=== PATIENT | female | born 1980 ===

== ENCOUNTER 2020-09-08 02:35 | Day surgery (SDC) | payer SELFPAY ==
[~2020-09-08] VITALS: Ht 165.1 cm; Wt 81.1 kg
[2020-09-08] VITALS (9 sets, daily range): BP systolic 109–136; BP diastolic 71–80
--- NOTE | 2020-09-08 02:54 | ED Abdominal Pain ---
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) Exam Limitations: Language Barrier History of Present Illness Date Seen by Provider: Sep 08, 2020 Time Seen by Provider: 02:44 Initial Comments PT ARRIVES VIA POV C/O UPPER ABDOMINAL PAIN SINCE 1700 TONIGHT PAIN IS CONSTANT AND SEVERE NO VOMITING OR DIARRHEA NO FEVER NO URINARY SYMPTOMS TOOK UNKNOWN MEDICATION FOR "COLON" AND HAD BM X 3, NO IMPROVEMENT IN PAIN HAD SIMILAR 2 YEARS AGO IN [facility], NO TESTS DONE STATES SHE MOVED HERE 2 MONTHS AGO FROM [facility] LMP 1 MONTH AGO, HAS HAD STERILIZATION PROCEDURE PCP: RAHEEM Allergies and Home Medications Allergies Coded Allergies: No Known Drug Allergies (Unverified , 09/08/20) Patient Home Medication List Home Medication List Reviewed: Yes Review of Systems Review of Systems Constitutional: No chills, No diaphoresis, No dizziness, No fever; malaise Gastrointestinal: See HPI, Abdominal Pain; Denies Diarrhea, Denies Vomiting Genitourinary: No Symptoms Reported Musculoskeletal: no symptoms reported Past Fxgckvp-Meucxu-Qvdqcw Hx Past Med/Social Hx: Reviewed and Corrections made Patient Social History Alcohol Use: Denies Use Drug of Choice: DENIES Smoking Status: Never a Smoker Past Medical History Surgeries: Yes ( X 2) Section, Tubal Ligation Respiratory: No Cardiac: No Neurological: No : No Reproductive Disorders: No CLIENT ADVOCATE History: Tubal Ligation Genitourinary: No Gastrointestinal: No Musculoskeletal: No Endocrine: No HEENT: No Cancer: No Psychosocial: No Integumentary: No Blood Disorders: No Physical Exam Vital Signs Vital Signs - First Documented 09/08/20 02:44 Temp 35.9 Pulse 70 Resp 16 B/P (MAP) 129/72 (91) Pulse Ox 100 O2 Delivery Room Air Capillary Refill : Height/Weight/BMI Height: '" Weight: lbs. oz. kg; BMI Method: General Appearance: WD/WN, no apparent distress, obese, other (WALKS UPRIGHT BUT HOLDING UPPER ABDOMEN) Respiratory: normal breath sounds Cardiovascular: regular rate, rhythm, no murmur Gastrointestinal: normal bowel sounds, soft; No distended; guarding; No rebound; tenderness (MODERATE EPIGASTRIC); No hernia, No mass Rectal: normal exam, heme negative stool Extremities: normal inspection Back: no CVA tenderness Neurologic/Psychiatric: no motor/sensory deficits, alert, oriented x 3 Skin: normal color (PT IS ), warm/dry; No rash Progress/Results/Core Measures Results/Orders Lab Results Laboratory Tests Test 09/08/20 02:45 09/08/20 02:50 Range/Units Urine Color YELLOW Urine Clarity CLEAR Urine pH 6.5 5-9 Urine Specific [place] 1.020 1.016-1.022 Urine Protein NEGATIVE NEGATIVE Urine Glucose (UA) NEGATIVE NEGATIVE Urine Ketones NEGATIVE NEGATIVE Urine Nitrite NEGATIVE NEGATIVE Urine Bilirubin NEGATIVE NEGATIVE Urine Urobilinogen 2.0 < = 1.0 MG/DL Urine Leukocyte Esterase NEGATIVE NEGATIVE Urine RBC (Auto) NEGATIVE NEGATIVE Urine RBC NONE /HPF Urine WBC NONE /HPF Urine Squamous Epithelial Cells 5-10 /HPF Urine Crystals NONE /LPF Urine Bacteria FEW H /HPF Urine Casts NONE /LPF Urine Mucus NEGATIVE /LPF Urine Culture Indicated NO Urine Opiates Screen NEGATIVE NEGATIVE Urine Oxycodone Screen NEGATIVE NEGATIVE Urine Methadone Screen NEGATIVE NEGATIVE Urine Propoxyphene Screen NEGATIVE NEGATIVE Urine Barbiturates Screen NEGATIVE NEGATIVE Ur Tricyclic Antidepressants Screen NEGATIVE NEGATIVE Urine Phencyclidine Screen NEGATIVE NEGATIVE Urine Amphetamines Screen NEGATIVE NEGATIVE Urine Methamphetamines Screen NEGATIVE NEGATIVE Urine Benzodiazepines Screen NEGATIVE NEGATIVE Urine Cocaine Screen NEGATIVE NEGATIVE Urine Cannabinoids Screen NEGATIVE NEGATIVE White Blood Count 4.5 4.3-11.0 10^3/uL Red Blood Count 4.33 3.80-5.11 10^6/uL Hemoglobin 7.5 L 11.5-16.0 g/dL Hematocrit 28 L 35-52 % Mean Corpuscular Volume 65 L 80-99 fL Mean Corpuscular Hemoglobin 17 L 25-34 pg Mean Corpuscular Hemoglobin Concent 27 L 32-36 g/dL Red Cell Distribution Width 18.8 H 10.0-14.5 % Platelet Count 181 130-400 10^3/uL Mean Platelet Volume 9.0-12.2 fL Immature Granulocyte % (Auto) 0 % Neutrophils (%) (Auto) 49 42-75 % Lymphocytes (%) (Auto) 37 12-44 % Monocytes (%) (Auto) 12 0-12 % Eosinophils (%) (Auto) 1 0-10 % Basophils (%) (Auto) 1 0-10 % Neutrophils # (Auto) 2.2 1.8-7.8 10^3/uL Lymphocytes # (Auto) 1.7 1.0-4.0 10^3/uL Monocytes # (Auto) 0.6 0.0-1.0 10^3/uL Eosinophils # (Auto) 0.1 0.0-0.3 10^3/uL Basophils # (Auto) 0.0 0.0-0.1 10^3/uL Immature Granulocyte # (Auto) 0.0 0.0-0.1 10^3/uL Sodium Level 140 135-145 MMOL/L Potassium Level 3.9 3.6-5.0 MMOL/L Chloride Level 106 98-107 MMOL/L Carbon Dioxide Level 23 21-32 MMOL/L Anion Gap 11 5-14 MMOL/L Blood Urea Nitrogen 8 7-18 MG/DL Creatinine 0.68 0.60-1.30 MG/DL Estimat Glomerular Filtration Rate > 60 BUN/Creatinine Ratio 12 Glucose Level 91 70-105 MG/DL Calcium Level 9.0 8.5-10.1 MG/DL Corrected Calcium 8.7 8.5-10.1 MG/DL Total Bilirubin 0.8 0.1-1.0 MG/DL Aspartate Amino Transf (AST/SGOT) 30 5-34 U/L Alanine Aminotransferase (ALT/SGPT) 25 0-55 U/L Alkaline Phosphatase 76 40-136 U/L Total Protein 8.0 6.4-8.2 GM/DL Albumin 4.4 3.2-4.5 GM/DL Amylase Level 66 25-125 U/L Lipase 27 8-78 U/L My Orders Orders - AMOS EATON DO Ed Iv/Invasive Line Start (09/08/20 02:44) Urine Bedside (09/08/20 02:44) Amylase (09/08/20 02:44) Cbc With Automated Diff (09/08/20 02:44) Comprehensive Metabolic Panel (09/08/20 02:44) Drug Screen Stat (Urine) (09/08/20 02:44) Lipase (09/08/20 02:44) Ua Culture If Indicated (09/08/20 02:44) Ondansetron Injection (Zofran Injectio (09/08/20 03:15) Hyoscyamine Sl Tablet (Levsin Sl Tablet) (09/08/20 03:15) Pantoprazole Injection (Protonix Injecti (09/08/20 03:15) Ct Abdomen/Pelvis W (09/08/20 03:03) Red Cells Leukocytes Reduced (09/08/20 03:04) Ed Iv/Invasive Line Start (09/08/20 03:04) Ns Iv 1000 Ml (Sodium Chloride 0.9%) (09/08/20 03:15) Type And Screen (09/08/20 03:04) Iohexol Injection (Omnipaque 350 Mg/Ml 1 (09/08/20 04:00) Received Contrast (Hold Metformin- Contr (09/08/20 04:00) Sodium Chloride Flush (Catheter Flush Sy (09/08/20 04:00) Ns (Ivpb) (Sodium Chloride 0.9% Ivpb Bag (09/08/20 04:00) Ns Iv 500 Ml (Sodium Chloride 0.9%) (09/08/20 04:02) Medications Given in ED Current Medications Medications Dose Ordered Sig/Josh Route Start Time Stop Time Status Last Admin Dose Admin Hyoscyamine Sulfate 0.25 mg ONCE ONCE PO 09/08/20 03:15 09/08/20 03:17 DC 09/08/20 03:09 0.25 MG Iohexol 100 ml ONCE ONCE IV 09/08/20 04:00 09/08/20 04:01 DC 09/08/20 04:08 100 ML Ondansetron HCl 4 mg ONCE ONCE IVP 09/08/20 03:15 09/08/20 03:17 DC 09/08/20 03:11 4 MG Pantoprazole 40 mg ONCE ONCE IV 09/08/20 03:15 09/08/20 03:17 DC 09/08/20 03:16 40 MG Sodium Chloride 10 ml NEEDED PRN IV 09/08/20 04:00 09/08/20 04:08 10 ML Sodium Chloride 100 ml ONCE ONCE IV 09/08/20 04:00 09/08/20 04:01 DC 09/08/20 04:08 80 ML Sodium Chloride 500 ml @ STK-MED ONCE .ROUTE 09/08/20 04:02 09/08/20 04:13 DC 09/08/20 04:29 500 MLS/HR Vital Signs/I&O 09/08/20 02:44 Temp 35.9 Pulse 70 Resp 16 B/P (MAP) 129/72 (91) Pulse Ox 100 O2 Delivery Room Air Progress Progress Note : Progress Note GIVEN IV FLUIDS, ZOFRAN, PROTONIX, LEVSIN WITH IMPROVEMENT IN SYMPTOMS PT LATER STATES THAT SHE HAS BEEN ANEMIC IN THE PAST, WITH HER LAST 15 YEARS AGO NO KNOWN PROBLEMS WITH ANEMIA WHEN SHE IS NOT PT HAS NEVER HAD A BLOOD TRANSFUSION PT STATES NOW THAT SHE HAS BEEN TIRED RECENTLY, AND WENT TO [facility] RECENTLY BUT NO TESTS WERE DONE. NO DETERIORATION IN PT'S CONDITION DURING ER STAY Diagnostic Imaging Comments CT ABDOMEN/PELVIS--NO ACUTE PROCESS, PER [facility] VIA FAX AT 0210 Reviewed: Reviewed by Me Departure Communication (Admissions) 043--SPOKE WITH DR. LEVY, HOSPITALIST FOR [facility], ACCEPTS PT FOR ADMIT. WOULD LIKE SURGERY CONSULTED 0434--SPOKE WITH DR. PEDRAZA, SURGEON SILK SCREEN PROCESSOR. INFORMED HIM OF CONSULT. HE ADVISES THAT PT MAY BE ON CLEAR LIQUID DIET. Impression Primary Impression: Anemia Additional Impression: Epigastric abdominal pain Disposition: ADMITTED INPATIENT Condition: Stable Admissions Decision to Admit Reason: Admit from ER (General) Decision to Admit/Date: Sep 08, 2020 Time/Decision to Admit Time: 04:30 Departure-Patient Inst. Referrals: NO,LOCAL PHYSICIAN (PCP) Primary Care Physician AMOS EATON DO Sep 08, 2020 02:54
[2020-09-08 02:59] LABS: BASOPHILS % (AUTO) 1 % (0-10); EOSINOPHILS # (AUTO) 0.1 10^3/uL (0.0-0.3); EOSINOPHILS % (AUTO) 1 % (0-10); HEMATOCRIT 28 % (35-52); HEMOGLOBIN 7.5 g/dL (11.5-16.0); LYMPHOCYTES # (AUTO) 1.7 10^3/uL (1.0-4.0); LYMPHOCYTES % (AUTO) 37 % (12-44); MEAN CORPUSCULAR HEMOGLOBIN 17 pg (25-34); MEAN CORPUSCULAR HGB CONC 27 g/dL (32-36); MEAN CORPUSCULAR VOLUME 65 fL (80-99); MONOCYTES # (AUTO) 0.6 10^3/uL (0.0-1.0); MONOCYTES % (AUTO) 12 % (0-12); NEUTROPHILS # (AUTO) 2.2 10^3/uL (1.8-7.8); NEUTROPHILS % (AUTO) 49 % (42-75); PLATELET COUNT 181 10^3/uL (130-400); WHITE BLOOD COUNT 4.5 10^3/uL (4.3-11.0)
[2020-09-08 03:13] LABS: BILIRUBIN,URINE NEGATIVE (NEGATIVE); CLARITY,URINE CLEAR; COLOR,URINE YELLOW; GLUCOSE, URINE (UA) NEGATIVE (NEGATIVE); KETONES,URINE NEGATIVE (NEGATIVE); LEUKOCYTE ESTERASE ,URINE NEGATIVE (NEGATIVE); NITRITE,URINE NEGATIVE (NEGATIVE); PH,URINE 6.5 (5-9); PROTEIN,URINE NEGATIVE (NEGATIVE)
[2020-09-08] MEDS ORDERED: PANTOPRAZOLE 40 MG (PROTONIX) VIAL IV ONE (03:15)
[2020-09-08] MEDS ORDERED: NS IV 1000 ML 1,000 ML IV SCH (03:15)
[2020-09-08] MEDS ORDERED: HYOSCYAMINE 0.125 MG (LEVSIN) TAB PO ONE (03:15)
[2020-09-08] MEDS ORDERED: ONDANSETRON 4 MG/2 ML (SDV) Z0FRAN IVP ONE (03:15)
[2020-09-08 03:16] LABS: ALBUMIN 4.4 GM/DL (3.2-4.5); CHLORIDE 106 MMOL/L (98-107); POTASSIUM 3.9 MMOL/L (3.6-5.0); SODIUM 140 MMOL/L (135-145)
[2020-09-08 03:17] LABS: AMYLASE 66 U/L (25-125)
[2020-09-08 03:19] LABS: GLUCOSE 91 MG/DL (70-105)
[2020-09-08 03:20] LABS: BACTERIA,URINE FEW /HPF
[2020-09-08 03:20] LABS: BILIRUBIN,TOTAL 0.8 MG/DL (0.1-1.0); CARBON DIOXIDE 23 MMOL/L (21-32)
[2020-09-08 03:22] LABS: ALKALINE PHOSPHATASE 76 U/L (40-136); CREATININE SERUM 0.68 MG/DL (0.60-1.30); GFR ESTIMATED > 60
[2020-09-08 03:24] LABS: BUN/CREATININE RATIO 12
[2020-09-08 03:25] LABS: ALANINE AMINOTRANSFERASE 25 U/L (0-55)
[2020-09-08 03:26] LABS: LIPASE 27 U/L (8-78)
[2020-09-08 03:28] LABS: AMPHETAMINE SCREEN, URINE NEGATIVE (NEGATIVE); BARBITURATE SCREEN URINE NEGATIVE (NEGATIVE); BENZODIAZEPINES SCREEN URINE NEGATIVE (NEGATIVE); CANNABINOID SCREEN, URINE NEGATIVE (NEGATIVE); COCAINE SCREEN URINE NEGATIVE (NEGATIVE); METHADONE STAT NEGATIVE (NEGATIVE); METHAMPHETAMINE SCREEN URINE S NEGATIVE (NEGATIVE); OPIATE SCREEN URINE NEGATIVE (NEGATIVE); OXYCODONE STAT NEGATIVE (NEGATIVE); PROPOXYPHENE STAT NEGATIVE (NEGATIVE); TRICYCLIC ANTIDEPRESSANTS SCRE NEGATIVE (NEGATIVE)
[2020-09-08] MEDS ORDERED: IOHEXOL 350 MG/ML 100 ML (OMNIPAQUE 350) VIAL IV ONE (04:00)
[2020-09-08] MEDS ORDERED: HOLD METFORMIN - RECEIVED CONTRAST 20 ML VIAL IV SCH (04:00)
[2020-09-08] MEDS ORDERED: NS 100 ML (IVPB) BAG IV ONE (04:00)
[2020-09-08] MEDS ORDERED: CATHETER FLUSH 10 ML SYR IV PRN (04:00)
[2020-09-08] MEDS ORDERED: NS IV 500 ML 500 ML ONE (04:02)
[2020-09-08] MEDS ORDERED: fentaNYL INJ 100 MCG/2 ML AMP IVP PRN (05:30)
[2020-09-08] MEDS ORDERED: ONDANSETRON 4 MG/2 ML (SDV) Z0FRAN IVP PRN (05:30)
[2020-09-08] MEDS ORDERED: HYOSCYAMINE 0.125 MG (LEVSIN) TAB PO PRN (05:30)
--- NOTE | 2020-09-08 07:25 | Diagnostic Imaging Report ---
PROCEDURE: CT abdomen and pelvis with contrast. TECHNIQUE: Multiple contiguous axial images were obtained through the abdomen and pelvis after administration of intravenous contrast. Auto Exposure Controls were utilized during the CT exam to meet ALARA standards for radiation dose reduction. All CT scans use one or more of the following dose optimizing techniques: automated exposure control, MA and/or KvP adjustment based on patient size and exam type or iterative reconstruction. INDICATION: Epigastric pain, onset last evening. COMPARISON STUDIES: None FINDINGS: The lung bases are clear. Liver and gallbladder appear normal. Spleen is upper normal in size. Adrenal glands and kidneys appear normal. No renal calculi or hydronephrosis is present. The appendix is never visualized. Urinary bladder appears unremarkable. There is probably a fibroid in the left side of the uterus. Adnexal structures appear normal. No ascites is present. Bowel loops demonstrate no inflammatory or obstructive changes. IMPRESSION: 1. The appendix is never definitely identified. What appears to be the appendix on the coronal view appears normal. 2. Probable small uterine fibroid. Findings agree with [facility] report. Dictated by: Dictated on workstation # [id number]
[2020-09-08] MEDS: PANTOPRAZOLE 40 MG (PROTONIX) VIAL IV SCH (09:16)
[2020-09-08] MEDS: NS IV 1000 ML 1,000 ML IV SCH ×3 (09:16→22:14)
[2020-09-08 11:02] LABS: HEMOGLOBIN 8.7 g/dL (11.5-16.0)
--- NOTE | 2020-09-08 15:04 | History & Physical ---
HPI History of Present Illness: 40 yo F that presented with worsening abdominal pain the last 3 days. States that the pain has become more sharp and she feels more bloated the last 2 days. States that she has had some burning pain in her upper abdomen. Denies any N/V. No diarrhea or constipation. States that she has had a similar episode 5 years ago when she was in [place] and she says she got fluids and never was told what was going on. Denies any previous surgeries other then 2 c sections. States that she still has her gallbladder and appendix. Otherwise no other medical problems and does not take any medications. Source: patient, edge baster (Language line on the phone) Exam Limitations: no limitations Date seen by provider: Sep 08, 2020 Time Seen by Provider: 10:25 Attending Physician Alexus Rodriguez DO [facility] [place] Consult Date of Admission Sep 08, 2020 at 04:30 Home Medications Home Medications Reviewed patient Home Medication Reconciliation performed by pharmacy medication reconciliations fork lift technician and/or nursing. Patients Allergies have been reviewed. Allergies Coded Allergies: No Known Drug Allergies (Unverified , 09/08/20) DKS-Rwbsee-Dxbuvn Hx Patient Social History Drug of Choice: DENIES Smoking Status: Never a Smoker 2nd Hand Smoke Exposure: No Recent Hopitalizations: No Alcohol Use?: No Have you traveled recently?: No Past Medical History 2 previous C/sections Review of Systems ([facility]) Constitutional: chills, malaise EENTM: no symptoms reported Respiratory: no symptoms reported; No cough, No dyspnea on exertion, No short of breath Cardiovascular: no symptoms reported; No chest pain, No edema, No palpitations Gastrointestinal: abdominal pain, heartburn, nausea Genitourinary: no symptoms reported; No dysuria, No frequency, No hematuria : No Musculoskeletal: no symptoms reported; No back pain, No joint pain, No muscle pain Skin: no symptoms reported; No lesions, No rash Psychiatric/Neurological: No Symptoms Reported Reviewed Test Results Reviewed Test Results Lab Laboratory Tests Test 09/08/20 02:45 09/08/20 02:50 09/08/20 10:57 09/08/20 11:36 Range/Units Urine Color YELLOW Urine Clarity CLEAR Urine pH 6.5 5-9 Urine Specific [place] 1.020 1.016-1.022 Urine Protein NEGATIVE NEGATIVE Urine Glucose (UA) NEGATIVE NEGATIVE Urine Ketones NEGATIVE NEGATIVE Urine Nitrite NEGATIVE NEGATIVE Urine Bilirubin NEGATIVE NEGATIVE Urine Urobilinogen 2.0 < = 1.0 MG/DL Urine Leukocyte Esterase NEGATIVE NEGATIVE Urine RBC (Auto) NEGATIVE NEGATIVE Urine RBC NONE /HPF Urine WBC NONE /HPF Urine Squamous Epithelial Cells 5-10 /HPF Urine Crystals NONE /LPF Urine Bacteria FEW H /HPF Urine Casts NONE /LPF Urine Mucus NEGATIVE /LPF Urine Culture Indicated NO Urine Opiates Screen NEGATIVE NEGATIVE Urine Oxycodone Screen NEGATIVE NEGATIVE Urine Methadone Screen NEGATIVE NEGATIVE Urine Propoxyphene Screen NEGATIVE NEGATIVE Urine Barbiturates Screen NEGATIVE NEGATIVE Ur Tricyclic Antidepressants Screen NEGATIVE NEGATIVE Urine Phencyclidine Screen NEGATIVE NEGATIVE Urine Amphetamines Screen NEGATIVE NEGATIVE Urine Methamphetamines Screen NEGATIVE NEGATIVE Urine Benzodiazepines Screen NEGATIVE NEGATIVE Urine Cocaine Screen NEGATIVE NEGATIVE Urine Cannabinoids Screen NEGATIVE NEGATIVE White Blood Count 4.5 4.3-11.0 10^3/uL Red Blood Count 4.33 3.80-5.11 10^6/uL Hemoglobin 7.5 L 8.7 L 11.5-16.0 g/dL Hematocrit 28 L 31 L 35-52 % Mean Corpuscular Volume 65 L 80-99 fL Mean Corpuscular Hemoglobin 17 L 25-34 pg Mean Corpuscular Hemoglobin Concent 27 L 32-36 g/dL Red Cell Distribution Width 18.8 H 10.0-14.5 % Platelet Count 181 130-400 10^3/uL Mean Platelet Volume 9.0-12.2 fL Immature Granulocyte % (Auto) 0 % Neutrophils (%) (Auto) 49 42-75 % Lymphocytes (%) (Auto) 37 12-44 % Monocytes (%) (Auto) 12 0-12 % Eosinophils (%) (Auto) 1 0-10 % Basophils (%) (Auto) 1 0-10 % Neutrophils # (Auto) 2.2 1.8-7.8 10^3/uL Lymphocytes # (Auto) 1.7 1.0-4.0 10^3/uL Monocytes # (Auto) 0.6 0.0-1.0 10^3/uL Eosinophils # (Auto) 0.1 0.0-0.3 10^3/uL Basophils # (Auto) 0.0 0.0-0.1 10^3/uL Immature Granulocyte # (Auto) 0.0 0.0-0.1 10^3/uL Sodium Level 140 135-145 MMOL/L Potassium Level 3.9 3.6-5.0 MMOL/L Chloride Level 106 98-107 MMOL/L Carbon Dioxide Level 23 21-32 MMOL/L Anion Gap 11 5-14 MMOL/L Blood Urea Nitrogen 8 7-18 MG/DL Creatinine 0.68 0.60-1.30 MG/DL Estimat Glomerular Filtration Rate > 60 BUN/Creatinine Ratio 12 Glucose Level 91 70-105 MG/DL Calcium Level 9.0 8.5-10.1 MG/DL Corrected Calcium 8.7 8.5-10.1 MG/DL Total Bilirubin 0.8 0.1-1.0 MG/DL Aspartate Amino Transf (AST/SGOT) 30 5-34 U/L Alanine Aminotransferase (ALT/SGPT) 25 0-55 U/L Alkaline Phosphatase 76 40-136 U/L Total Protein 8.0 6.4-8.2 GM/DL Albumin 4.4 3.2-4.5 GM/DL Amylase Level 66 25-125 U/L Lipase 27 8-78 U/L Glucometer 107 70-110 MG/DL Test 09/08/20 13:50 Range/Units Lab Scanned Report Transfusion Reaction Form [id number] Physical Exam-([facility]) Physical Exam Vital Signs VS - Last 72 Hours, by Label 09/08/20 09/08/20 09/08/20 09/08/20 02:44 05:03 05:15 05:50 Temp 35.9 36.2 36.2 Pulse 70 60 59 53 Resp 16 19 18 18 B/P (MAP) 129/72 (91) 139/69 136/78 (97) 130/80 Pulse Ox 100 100 100 100 O2 Delivery Room Air Room Air Room Air Room Air 09/08/20 09/08/20 09/08/20 09/08/20 05:55 06:00 06:13 06:29 Temp 36.2 36.2 Pulse 60 53 55 Resp 18 16 B/P (MAP) 130/80 123/78 Pulse Ox 100 100 100 O2 Delivery Room Air Room Air Room Air 09/08/20 09/08/20 09/08/20 09/08/20 07:15 08:00 11:35 12:40 Temp 36.5 36.4 Pulse 58 57 47 Resp 18 18 B/P (MAP) 128/78 (95) 116/71 (86) Pulse Ox 99 99 99 O2 Delivery Room Air Room Air Room Air 09/08/20 14:38 Pulse Ox 99 O2 Delivery Room Air Capillary Refill : Less Than 3 Seconds General Appearance: WD/WN, no apparent distress Neck: non-tender, full range of motion, supple Respiratory: chest non-tender, lungs clear, normal breath sounds, no resp iratory distress, no accessory muscle use Cardiovascular: normal peripheral pulses, regular rate, rhythm, no edema, no murmur Gastrointestinal: normal bowel sounds, soft, distended, tenderness (epigastric ttp, no rebound or guarding); No mass Back: no CVA tenderness, no vertebral tenderness Extremities: normal range of motion, non-tender, normal inspection, no pedal edema, no calf tenderness, normal capillary refill Neurologic/Psychiatric: tavern operator II-XII nml as tested, no motor/sensory deficits, alert, normal mood/affect, oriented x 3 Skin: normal color, warm/dry Lymphatic: no adenopathy Assessment/Plan Assessment/Plan Admission Status: Observation (1) Epigastric abdominal pain Status: Acute Assessment & Plan: - Abdominal US ordered, Continue on PPI, General surgery consulted, appreciate recommendations (2) Microcytic anemia Status: Acute Assessment & Plan: - pRBCs ordered, Iron panel pending, hemoccult pending, concerned for bleeding ulcer SHAMIR BAIN MD Sep 08, 2020 15:04
--- NOTE | 2020-09-08 18:00 | Progress Note-Pre Operative ---
Pre-Operative Progress Note H&P Reviewed The H&P was reviewed, patient examined and no changes noted. Date Seen by Provider: Sep 08, 2020 Time Seen by Provider: 18:00 Date H&P Reviewed: Sep 08, 2020 Time H&P Reviewed: 18:00 Pre-Operative Diagnosis: GERD, anemia ISAI PEDRAZA MD Sep 08, 2020 18:00
[2020-09-09] VITALS (14 sets, daily range): BP systolic 100–166; BP diastolic 57–96
[2020-09-09] MEDS: NS IV 1000 ML 1,000 ML IV SCH ×4 (04:58→21:41)
[2020-09-09 05:32] LABS: HEMATOCRIT 29 % (35-52); HEMOGLOBIN 8.1 g/dL (11.5-16.0); MEAN CORPUSCULAR HGB CONC 28 g/dL (32-36)
[2020-09-09 05:34] LABS: BASOPHILS % (AUTO) 1 % (0-10); EOSINOPHILS % (AUTO) 1 % (0-10); LYMPHOCYTES # (AUTO) 1.3 10^3/uL (1.0-4.0); LYMPHOCYTES % (AUTO) 35 % (12-44); MEAN CORPUSCULAR HEMOGLOBIN 20 pg (25-34); MEAN CORPUSCULAR VOLUME 70 fL (80-99); MONOCYTES # (AUTO) 0.4 10^3/uL (0.0-1.0); MONOCYTES % (AUTO) 11 % (0-12); NEUTROPHILS # (AUTO) 1.9 10^3/uL (1.8-7.8); NEUTROPHILS % (AUTO) 52 % (42-75); PLATELET COUNT 102 10^3/uL (130-400); WHITE BLOOD COUNT 3.6 10^3/uL (4.3-11.0)
[2020-09-09 05:45] LABS: ALANINE AMINOTRANSFERASE 18 U/L (0-55); ALBUMIN 3.3 GM/DL (3.2-4.5); ALKALINE PHOSPHATASE 60 U/L (40-136); BUN/CREATININE RATIO 7; CARBON DIOXIDE 22 MMOL/L (21-32); CHLORIDE 111 MMOL/L (98-107); CREATININE SERUM 0.59 MG/DL (0.60-1.30); GFR ESTIMATED > 60; GLUCOSE 82 MG/DL (70-105); POTASSIUM 3.6 MMOL/L (3.6-5.0); SODIUM 140 MMOL/L (135-145); TOTAL PROTEIN 5.9 GM/DL (6.4-8.2)
--- NOTE | 2020-09-09 06:43 | CONSULTATION REPORT ---
DATE OF SERVICE: 09/08/2020 ADMITTING PHYSICIAN: Dr. Carolina Ortiz. HISTORY OF PRESENT ILLNESS: The patient is a 40-year-old female, who is Maltese speaking. [place] and states that she has had an epigastric pain for the past 3 days. She does not report any nausea, no vomiting. She also does report that she has had some issues with this before in the past for the past several years. She has not had an episode, severe up until this point. She was also found to be anemic with a hemoglobin of 7.5. She does not report any red blood per rectum nor any dark tarry stools. She also did have a Hemoccult test, which was found to be negative. PAST MEDICAL HISTORY: Gastroesophageal reflux disease. PAST SURGICAL HISTORY: None. ALLERGIES: No known drug allergies. MEDICATIONS: None. SOCIAL HISTORY: Negative smoke, negative alcohol. FAMILY HISTORY: Noncontributory. VITAL SIGNS: Temperature 36.2, blood pressure 109/72, pulse 50, respirations 20, pulse ox 100% on room air. REVIEW OF SYSTEMS: This is a well-nourished female, currently in no acute distress. She is not experiencing any shortness of breath or difficulty breathing. No chest pain, palpitations or diaphoresis. She has had epigastric pain on an intermittent basis, much more severe starting 3 days ago and intensifying in nature. No hematemesis, no coffee ground emesis. She reports that her bowel movements have been normal. No fever, chills, no recent inadvertent weight loss. All other review of systems negative. PHYSICAL EXAMINATION: CHEST: Clear. Good breath sounds bilaterally. HEART: Regular, no murmurs. EXTREMITIES: No lower extremity edema, negative Homans sign. HEENT: No scleral icterus. NECK: No cervical lymphadenopathy. ABDOMEN: Soft, nondistended. There is discomfort in epigastric region upon deep palpation. No peritoneal signs. No hernias. SKIN: Warm, dry. LABORATORY DATA: WBC 4.5, hemoglobin 8.7, hematocrit 31, platelets 181. BUN 8, creatinine 0.68. Liver function enzymes are normal. ASSESSMENT AND PLAN: A 40-year-old female with gastroesophageal reflux disease. On this admission, we will proceed with an EGD as well as biopsies as appropriate. We will recommend continued medical management with a PPI acid supervisor home energy consultant as well as clear liquids for now. Job ID: [id number] DocumentID: [id number] Dictated Date: 09/08/2020 18:05:49 Thread Winder Automatic Date: 09/08/2020 18:38:12 Dictated By: ISAI PEDRAZA MD
[2020-09-09] MEDS: PANTOPRAZOLE 40 MG (PROTONIX) VIAL IV SCH (08:32)
--- NOTE | 2020-09-09 10:29 | Diagnostic Imaging Report ---
INDICATION: Upper abdominal pain PROCEDURE: Ultrasound abdomen complete. TECHNIQUE: Multiple real-time grayscale images were obtained of the abdomen in various projections. There are no prior ultrasound examinations available for comparison. The CT abdomen/pelvis exam performed on 09/08/2020 failed to show any clear evidence for acute appendicitis. The major solid organs of the abdomen appeared to be within normal limits. On this study there is no evidence for cholelithiasis and the gallbladder wall does not seem thickened. There is a trace amount of fluid about the gallbladder however. The common bile duct is not dilated. The liver, spleen, pancreas, aorta, inferior vena cava and kidneys show no sign of an acute abnormality. There is no mass or free fluid collection noted. IMPRESSION: 1. There is no evidence for cholelithiasis and the gallbladder wall does not seem to be thickened. The trace amount of fluid about the gallbladder is of uncertain etiology. If there is clinical concern regarding an acute cholecystitis, then a nuclear medicine hepatobiliary scan would be recommended. 2. There is no acute abnormality of the abdomen noted otherwise. Dictated by: Dictated on workstation # [id number]
[2020-09-09] MEDS ORDERED: HURRICAINE EXT TUBE (BENZOCAINE) ONE (13:27)
[2020-09-09] MEDS ORDERED: MIDAZOLAM 5 MG/5 ML (VERSED) VIAL ONE (13:27)
[2020-09-09] MEDS ORDERED: fentaNYL INJ 100 MCG/2 ML AMP ONE (13:28)
[2020-09-09] MEDS ORDERED: LIDOCAINE JELLY 2% 6 ML SYRINGE ONE (13:32)
[2020-09-09] MEDS ORDERED: NS IV 500 ML 500 ML ONE (13:34)
[2020-09-09] MEDS ORDERED: fentaNYL INJ 100 MCG/2 ML AMP IVP ONE (14:15)
[2020-09-09] MEDS ORDERED: NS IV 500 ML 500 ML IV PRN (14:15)
[2020-09-09] MEDS ORDERED: MIDAZOLAM 5 MG/5 ML (VERSED) VIAL IV ONE (14:15)
[2020-09-09] MEDS ORDERED: HURRICAINE EXT TUBE (BENZOCAINE) XX PRN (14:15)
[2020-09-09] MEDS ORDERED: LIDOCAINE JELLY 2% 6 ML SYRINGE MM PRN (14:15)
--- NOTE | 2020-09-09 15:45 | Progress Note-Post Operative ---
Post-Operative Progess Note Surgeon (s)/Pmp Certified Project Manager (s) Surgeon ISAI PEDRAZA MD Pmp Certified Project Manager: none Pre-Operative Diagnosis GERD, anemia Post-Operative Diagnosis reflux esophagitis(stage 2), small-mod HH(2.5cm), moderate gastritis. Procedure & Operative Findings Date of Procedure 09/09/20 Procedure Performed/Findings EGD with bx. Anesthesia Type cs Estimated Blood Loss Estimated blood loss (mL): minimal Specimens/Packing Specimens Removed ge jxn, antrum ISAI PEDRAZA MD Sep 09, 2020 15:45
--- NOTE | 2020-09-09 17:39 | OPERATIVE REPORT ---
DATE OF SERVICE: 09/09/2020 ATTENDING PHYSICIAN: Dr. Rodriguez. PREOPERATIVE DIAGNOSES: Epigastric pain with gastroesophageal reflux disease and anemia. POSTOPERATIVE DIAGNOSES: Reflux esophagitis stage II, small to moderate size hiatal hernia approximately 2 to 2.5 cm in size, moderate gastritis. No distal obstructions. PROCEDURES PERFORMED: EGD with biopsy. SURGEON: Isai Pedraza MD. ANESTHESIA: Conscious sedation. ESTIMATED BLOOD LOSS: Minimal. FINDINGS: Reflux esophagitis stage II, small to moderate size hiatal hernia approximately 2 to 2.5 cm in size, moderate gastritis. No distal obstructions. DISPOSITION: The patient tolerated the procedure well. INDICATIONS FOR PROCEDURE: The patient is a 40-year-old female, who presented to the Emergency Department with significant epigastric pain, nausea; however, no vomiting. She also had reported abdominal distention. She states that she is [place]ian speaking; however, information was able to be gathered that she has had issues with epigastric pain even five years ago when she was living in [place]. She does not report any hematemesis nor coffee ground emesis. She also does not report any major issues with diarrhea nor constipation as well as no red blood per rectum nor any dark tarry stools. DESCRIPTION OF PROCEDURE: The patient was brought to the endoscopy suite and laid in the left lateral decubitus position with the head slightly elevated. After adequate IV pain and sedative medications and conscious sedation anesthesia, the mouthpiece was applied. The endoscope was placed in the mouth, visualizing the pharynx and hypopharyngeal region. Vocal cords, epiglottis and vallecula identified and appeared to be normal. The endoscope was then intubated into the esophageal opening and esophagus insufflated. The endoscope was then advanced to the first, second and third portions of esophagus. At the level of the GE junction, a reflux esophagitis stage II identified. There were no ulcers or strictures identified in this region. A biopsy was taken with forceps with visualization of good hemostasis. The endoscope was then advanced into the stomach and endoscope retroflexed, visualizing a small to moderate size hiatal hernia 2 to 2.5 cm in size. There was a moderate severity gastritis. No formal ulcerations, polyps or any neoplasms of the stomach. A biopsy was taken of the antrum to rule out H. pylori with visualization of good hemostasis. The endoscope was then advanced to the pylorus and the first and second portion of the duodenum, which appeared normal with no ulcerations or any distal obstructions. The endoscope was then slowly withdrawn while taking a second look and suctioning of residual air with no additional findings. The patient tolerated the procedure well. We will treat her medically and start her on a PUD diet; however, we will also recommend small and more frequent meals, avoiding to eating at night as well as head elevation while lying supine. She also needs to avoid caffeinated beverages, spicy, greasy and acidic foods. We will also start her on Protonix 40 mg daily. Job ID: [id number] DocumentID: [id number] Dictated Date: 09/09/2020 14:40:36 Sap Bi Developer Date: 09/09/2020 17:37:06 Dictated By: ISAI PEDRAZA MD
--- NOTE | 2020-09-09 21:42 | Progress Note ---
Subjective Subjective/Events-last exam Use language line Per patient her pain has improved. She is to have EGD today. NPO currently. Tolerating ambulation. BM yesterday. Review of Systems Pulmonary: No Dyspnea, No Cough Cardiovascular: No: Chest Pain, Palpitations, Edema Gastrointestinal: Abdominal Pain; No: Nausea, Vomiting, Diarrhea, Constipation Genitourinary: No Dysuria, No Frequency, No Incontinence Musculoskeletal: No: back pain, leg pain, foot pain Neurological: No: Weakness, Incoordination Objective Exam Last Set of Vital Signs Vital Signs Date Time Temp Pulse Resp B/P (MAP) Pulse Ox O2 Delivery O2 Flow Rate FiO2 09/09/20 20:06 36.2 51 20 137/81 (99) 99 Room Air 09/09/20 14:10 8 Capillary Refill : Less Than 3 Seconds I&O Intake and Output 09/09/20 00:00 Intake Total 2920 ml Balance 2920 ml Intake Oral 1010 ml IV Total 1910 ml # Voids 6 # Bowel Movements 1 Daily Weight Change No General: Alert, Oriented X3, Cooperative, No Acute Distress HEENT: Mucous Memb Moist/[place] Lungs: Clear to Auscultation, Normal Air Movement Heart: Regular Rate, No Murmurs Abdomen: Normal Bowel Sounds, Soft, Other (mild epigastric ttp, no rebound or guarding, normal bowel sounds) Extremities: No Edema, No Tenderness/Swelling Skin: No Rashes Neuro: Normal Speech, Strength at 5/5 X4 Ext, Sensation Intact, Cranial Nerves 3-12 NL Results/Procedures Lab Laboratory Tests 09/09/20 05:08: White Blood Count 3.6L, Red Blood Count 4.13, Hemoglobin 8.1L, Hematocrit 29L, Mean Corpuscular Volume 70L, Mean Corpuscular Hemoglobin 20L, Mean Corpuscular Hemoglobin Concent 28L, Red Cell Distribution Width 22.9H, Platelet Count 102L, Mean Platelet Volume , Immature Granulocyte % (Auto) 0, Neutrophils (%) (Auto) 52, Lymphocytes (%) (Auto) 35, Monocytes (%) (Auto) 11, Eosinophils (%) (Auto) 1, Basophils (%) (Auto) 1, Neutrophils # (Auto) 1.9, Lymphocytes # (Auto) 1.3, Monocytes # (Auto) 0.4, Eosinophils # (Auto) 0.0, Basophils # (Auto) 0.0, Immature Granulocyte # (Auto) 0.0, Percent Immature Platelet Fraction 9.2H, Sodium Level 140, Potassium Level 3.6, Chloride Level 111H, Carbon Dioxide Level 22, Anion Gap 7, Blood Urea Nitrogen 4L, Creatinine 0.59L, Estimat Glomerular Filtration Rate > 60, BUN/Creatinine Ratio 7, Glucose Level 82, Calcium Level 8.0L, Corrected Calcium 8.6, Total Bilirubin 1.0, Aspartate Amino Transf (AST/SGOT) 22, Alanine Aminotransferase (ALT/SGPT) 18, Alkaline Phosphatase 60, Total Protein 5.9L, Albumin 3.3 09/09/20 13:10: Influenza Type A (RT-PCR) Not Detected, Influenza Type B (RT-PCR) Not Detected, SARS-CoV-2 RNA (RT-PCR) DetectedH 09/09/20 13:11: Lab Scanned Report Transfusion Reaction Form 09/09/20 13:20: Urine Test NEGATIVE Assessment/Plan Assessment/Plan (1) Epigastric abdominal pain Status: Acute Assessment & Plan: - Abdominal US ordered, Continue on PPI, General surgery consulted, appreciate recommendations 09/09: EGD today with Dr Iqbal, Moderate gastritis present, bx pending, Mild to moderate hiatal hernia seen (2) Microcytic anemia Status: Acute Assessment & Plan: - pRBCs ordered, Iron panel pending, hemoccult pending, con cerned for bleeding ulcer 09/09: Will send patient home on iron replacement (3) Hiatal hernia Status: Acute (4) Gastritis Status: Acute Assessment & Plan: 09/09: Continue PPI Qualifiers: Qualified Codes: K29.70 - Gastritis, unspecified, without bleeding SHAMIR BAIN MD Sep 09, 2020 21:42
[2020-09-10 00:02] VITALS: BP 104/68
[2020-09-10] MEDS: NS IV 1000 ML 1,000 ML IV SCH ×2 (04:25→12:22)
[2020-09-10 05:42] LABS: BASOPHILS % (AUTO) 1 % (0-10); NEUTROPHILS # (AUTO) 2.9 10^3/uL (1.8-7.8)
[2020-09-10 05:44] LABS: EOSINOPHILS # (AUTO) 0.1 10^3/uL (0.0-0.3); EOSINOPHILS % (AUTO) 1 % (0-10); HEMATOCRIT 31 % (35-52); HEMOGLOBIN 8.9 g/dL (11.5-16.0); LYMPHOCYTES # (AUTO) 1.5 10^3/uL (1.0-4.0); LYMPHOCYTES % (AUTO) 28 % (12-44); MEAN CORPUSCULAR HEMOGLOBIN 20 pg (25-34); MEAN CORPUSCULAR HGB CONC 29 g/dL (32-36); MEAN CORPUSCULAR VOLUME 69 fL (80-99); MONOCYTES # (AUTO) 0.6 10^3/uL (0.0-1.0); MONOCYTES % (AUTO) 13 % (0-12); NEUTROPHILS % (AUTO) 57 % (42-75); PLATELET COUNT 128 10^3/uL (130-400); WHITE BLOOD COUNT 5.1 10^3/uL (4.3-11.0)
[2020-09-10 05:54] LABS: ALBUMIN 3.7 GM/DL (3.2-4.5); CHLORIDE 109 MMOL/L (98-107); POTASSIUM 3.5 MMOL/L (3.6-5.0); SODIUM 139 MMOL/L (135-145)
[2020-09-10 05:55] LABS: CALCIUM 8.5 MG/DL (8.5-10.1)
[2020-09-10 05:57] LABS: GLUCOSE 86 MG/DL (70-105); TOTAL PROTEIN 6.7 GM/DL (6.4-8.2)
[2020-09-10 05:58] LABS: CARBON DIOXIDE 21 MMOL/L (21-32)
[2020-09-10 05:59] LABS: BILIRUBIN,TOTAL 0.9 MG/DL (0.1-1.0)
[2020-09-10 06:00] LABS: ALKALINE PHOSPHATASE 61 U/L (40-136); CREATININE SERUM 0.64 MG/DL (0.60-1.30); GFR ESTIMATED > 60
[2020-09-10 06:01] LABS: BUN/CREATININE RATIO 9
[2020-09-10 06:03] LABS: ALANINE AMINOTRANSFERASE 18 U/L (0-55)
[2020-09-10 07:50] VITALS: BP 102/65
[2020-09-10] MEDS: PANTOPRAZOLE 40 MG (PROTONIX) VIAL IV SCH (09:27)
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
[2020-09-10] MEDS ORDERED: FERR325T18 PO (10:26)
[2020-09-10] MEDS ORDERED: PANT40TA2 PO (10:26)
--- NOTE | 2020-09-10 10:28 | Discharge Summary ---
Discharge [facility] Reconcile Patient Problems Problems Reviewed?: Yes Discharge Medications New, Converted or Re-Newed RX: Transmitted to Pharmacy New Medications: Ferrous Sulfate (Ferrous Sulfate) 325 Mg Tablet 325 MG PO DAILY, #30 TAB 1 Refill Pantoprazole Sodium (Protonix) 40 Mg Tablet.dr 40 MG PO DAILY, #30 TAB Patient Instructions Goal/Follow Up Appt: 2 weeks at [facility] Return to The Hospital For: Dizziness Shortness of breath Blood in stool Activity & Diet Discharge Diet: Regular Diet (No spicy or hard to digest foods) Activity as Tolerated: Yes SHAMIR BAIN MD Sep 10, 2020 10:28
--- NOTE | 2020-09-12 13:44 | Conscious Sedation/ASA ---
EVELYN CALLOWAY 09/12/20 1344: Conscious Sedation Pre-Proced Time 18:00 ASA Score For ASA 3 and 4: Consider anesthesia and medical clearance. Also, for patients with a history of failed moderate sedation consider anesthesia. Airway Lungs Heart ASA score ASA 1: a normal healthy patient ASA 2: a patient with a mild systemic disease (mid diabetes, controlled hypertension, obesity ASA 3: a patient with a severe systemic disease that limits activity (angina, COPD, prior Myocardial infarction) ASA 4: a patient with an incapacitating disease that is a constant threat to life (CHF, renal failure) ASA 5: a moribund patient not expected to survive 24 hrs. (ruptured aneurysm) ASA 6: a declared brain- patient whose organs are being harvested. For emergent operations, add the letter E after the classification Sedation Plan The patient is an appropriate candidate to undergo the planned procedure, sedation, and anesthesia. The patient immediately re-assessed prior to indication. ISAI PEDRAZA MD 09/15/20 1501: Conscious Sedation Pre-Proced Time 10:00 ASA Score 2 Mallampati Classification Grade 2 Sedation Plan Analgesia, Amnesia, Plan communicated to team members, Discussed options with patient/fam, Discussed risks with patient/fam EVELYN CALLOWAY Sep 12, 2020 13:44 ISAI PEDRAZA MD Sep 15, 2020 15:01
== END 2020-09-10 12:25 | disposition home or self-care (01) ==
LOC: ER 02:40 → UNDOADMOB 04:30 → 4TH 04:30 → SDC 05:15 → 4TH 05:15 → SDC 09-10 12:25 → UNDODISOB 09-10 12:25
PROVIDERS: ATTEND Internal Medicine
DX: K29.50 Unspecified chronic gastritis without bleeding (principal); D64.9 Anemia, unspecified; K21.00 Gastro-esophageal reflux disease with esophagitis, without bleeding; K44.9 Diaphragmatic hernia without obstruction or gangrene; Z79.899 Other long term (current) drug therapy
CPT/HCPCS: 36430; 43239; 74177; 76700; 80053 ×3; 80306; 81000; 82150; 82274 ×2; 82728; 82947; 83540; 83550; 83690; 84703 ×2; 85014; 85018; 85025 ×3; 86850; 86900; 86901; 86920; 87636; 88305; 88342; 96374; 96375; 99284; G0378; P9016; 36415

== ENCOUNTER 2021-01-17 20:21 | Emergency (ER) | payer OTHER ==
[~2021-01-17 20:21] MED LIST: FERR325T18 PO; PANT40TA2 PO
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
[2021-01-17 21:39] VITALS: BP 133/76
== END 2021-01-17 21:40 | disposition home or self-care (01) ==
LOC: ER 20:21 → EDUNIT# 20:21 → ER 21:40
DX: S20.312A Abrasion of left front wall of thorax, initial encounter (principal); V89.2XXA Person injured in unspecified motor-vehicle accident, traffic, initial encounter
CPT/HCPCS: 71045; 93005